=== PATIENT | female | born 1995 | race Caucasian/White ===

== ENCOUNTER → 2018-08-13 | Outpatient (CLI) | payer OTHER ==
[~2018-08-13] MED LIST: PROHANCE 279.3MG/ML 15ML VIAL (A9576) As Ordered ONE
--- NOTE | 2018-08-13 17:18 | REP ---
MR BRAIN WITHOUT AND WITH CONTRAST: HISTORY: Hyperprolactinemia. CONTRAST: ProHance 7 mL. There is no intracranial contrast enhancement secondary to injector malfunction. There are no areas of abnormal signal intensity in the brain. There is no intraparenchymal, hemorrhage, infarct or midline shift. The ventricular system is normal in appearance. There is no extracerebral collection. The pituitary gland is normal in size and signal intensity. The pituitary gland measures 7 mm in height. The infundibulum is midline. The cavernous sinuses, optic chiasm and hypothalamus are normal in appearance. Mucosal thickening is present in the left maxillary sinus. IMPRESSION:There is no intracranial lesion. There is no intraparenchymal contrast enhancement secondary to injector malfunction. It is recommended that the patient return for contrast enhanced images. Electronically Signed by Austin Roman MD 08/14/2018 09:04 A
== END ==
LOC: M RAD 13:12
PROVIDERS: ATTEND Obstetrics & Gynecology
DX: E22.1 Hyperprolactinemia (principal)
CPT/HCPCS: 70551; A9576

== ENCOUNTER → 2018-08-22 | Outpatient (CLI) | payer OTHER ==
[~2018-08-22] MED LIST changes: -PROHANCE 279.3MG/ML 15ML VIAL (A9576) As Ordered ONE; +PROHANCE 279.3MG/ML 5ML VIAL (A9576) As Ordered ONE
--- NOTE | 2018-08-22 10:44 | REP ---
MRI brain and pituitary with IV gadolinium: History: Hyperprolactinemia. Comparison is made with study done August 13, 2018. During the previous examination, and injector malfunction prevented optimum contrast injection. Technique: Axial, coronal and sagittal postcontrast images are obtained. In addition precontrast T1 and T2-weighted images are obtained. The contrast enhancement dose today is 7 mL of intravenous ProHance. MRI findings: Pituitary stalk is in the midline and enhances normally. Pituitary gland measures 7 mm in height. Its superior margin is convex. There is a subtle 3 mm area of delayed enhancement in the left side of the gland which may be a tiny microadenoma. The gland otherwise enhances homogeneously. Suprasellar cistern is unremarkable. Optic chiasm appears intact. There is no evidence to suggest macroadenoma or other parasellar lesion. This study is otherwise unremarkable. 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 Otherwise normal. Electronically Signed by James Ferreira MD 08/22/2018 11:23 A
== END ==
LOC: M RAD 07:52
PROVIDERS: ATTEND Obstetrics & Gynecology
DX: E22.1 Hyperprolactinemia (principal)
CPT/HCPCS: 70552; A9576

== ENCOUNTER 2020-08-30 12:07 | Emergency (ER) | payer OTHER ==
[~2020-08-30] VITALS: Ht 175.3 cm; Wt 87.6 kg
[2020-08-30] MEDS ORDERED: CABE0.5T PO (12:23)
[2020-08-30] MEDS ORDERED: IRON1TAB2 PO (12:23)
[2020-08-30] MEDS ORDERED: TRAZ-252 PO (12:23)
[2020-08-30] MEDS ORDERED: SERT-141 PO (12:23)
--- NOTE | 2020-08-30 13:13 | REP ---
INDICATION: acute onset headache-popping sensation right temporal area. COMPARISON: Comparison brain MRI study August 22, 2018.. TECHNIQUE: Helical scanning is acquired. 5 mm axial images were reformatted. Coronal MPR images were generated. FINDINGS: Bone window settings demonstrate an intact bony calvarium. There is no evidence of skull fracture or incidental bony calvarial lesion. The visualized paranasal sinuses appear clear. No intraorbital abnormality is seen. On soft tissue window setting images; the lateral, third, and fourth ventricles are normal in size and position. Nieto-white differentiation pattern is normal above and below the tentorium. There are is no evidence of intracranial hemorrhage. No mass, edema, infarction, or midline shift is seen. No extra-axial fluid collection is appreciated. IMPRESSION: Negative noncontrast head CT. <Electronically signed by Helio Ferreira > 08/30/20 [id number]
[2020-08-30] MEDS ORDERED: ACETAMINOPHEN 325 MG TAB PO ONE (13:35)
[2020-08-30] MEDS ORDERED: KETOROLAC 30 MG/ML 1ML VIAL IM ONE (13:35)
[2020-08-30] MEDS ORDERED: KETO10TAB PO (14:12)
[2020-08-30 14:25] VITALS: BP 150/94
== END 2020-08-30 14:27 | disposition home or self-care (01) ==
LOC: M ED 12:07
DX: G43.909 Migraine, unspecified, not intractable, without status migrainosus (principal)
CPT/HCPCS: 70450; 96372; 99283; J1885

== ENCOUNTER → 2021-01-07 | Outpatient (CLI) | payer OTHER ==
[~2021-01-07] MED LIST changes: +CABE0.5T PO; +IRON1TAB2 PO; +KETO10TAB PO; -PROHANCE 279.3MG/ML 5ML VIAL (A9576) As Ordered ONE; +SERT-141 PO; +TRAZ-252 PO
--- NOTE | 2021-01-08 21:27 | REPVR ---
PROCEDURE INFORMATION: Exam: MR Head Without and With Contrast Exam date and time: 01/07/2021 4:15 PM Age: 25 years old Clinical indication: Condition or disease; Other: Benign neoplasm of pituitary gland TECHNIQUE: Imaging protocol: MR of the head without and with intravenous contrast. Contrast material: PROHANCE; Contrast volume: 8 ml; Contrast route: INTRAVENOUS (IV); COMPARISON: CT Head without contrast 08/30/2020 12:54 PM FINDINGS: Brain: There is redemonstration of a very faint approximately 0.3 cm focus of decreased enhancement within the left aspect of the pituitary gland, unknown if this reflects normal anatomy versus very small micro-adenoma. The infundibulum is midline. The optic chiasm is normal. Cavernous sinuses are normal. No intracranial hemorrhage or extra-axial fluid collection. No evidence of mass effect or midline shift. No white matter abnormalities. No restricted diffusion to suggest acute infarct. Cerebral ventricles: Ventricles, cisterns, and sulci are normal. Bones/joints: Unremarkable. Paranasal sinuses: Left maxillary sinus retention cyst. Mastoid air cells: No mastoid effusion. Soft tissues: Unremarkable. IMPRESSION: Redemonstration of a very faint approximately 0.3 cm focus of decreased enhancement within the left aspect of the pituitary gland, unknown if this reflects normal anatomy versus very small micro-adenoma. Findings overall stable when compared with prior MRI brain from 08/22/2018. Continued interval follow-up at the discretion of neurosurgery/endocrinology. Electronically signed by: Kapil Velasco On 01/08/2021 21:27:30 PM
== END ==
LOC: M PLARAD 14:51
PROVIDERS: ATTEND Internal Medicine Endocrinology, Diabetes & Metabolism
DX: D35.2 Benign neoplasm of pituitary gland (principal)

== ENCOUNTER 2021-02-02 20:32 | Emergency (ER) | payer OTHER ==
[~2021-02-02] VITALS: Ht 177.8 cm; Wt 92.3 kg
[2021-02-02 21:39] LABS: APPEARANCE, URINE HAZY (CLEAR); BACTERIA, URINE AUTO NEGATIVE (NEGATIVE); BILIRUBIN, URINE AUTO NEGATIVE (NEGATIVE); BLOOD, URINE BLOOD 1+ (NEGATIVE); COLOR, URINE YELLOW (YELLOW); GLUCOSE, URINE (UA) AUTO NEGATIVE (NEGATIVE); KETONE, URINE AUTO NEGATIVE (NEGATIVE); LEUKOCYTE ESTERASE, URINE AUTO TRACE (NEGATIVE); MUCUS, URINE SMALL (NEGATIVE); NITRITE, URINE AUTO NEGATIVE (NEGATIVE); PROTEIN, URINE AUTO 1+ mg/dL (NEGATIVE); RBC, URINE AUTO 4 /HPF (0-3); SPECIFIC GRAVITY URINE AUTO 1.025 (1.002-1.035); SQUAMOUS EPITHELIAL CELL UR AU 4 /HPF (0-6); WBC, URINE AUTO 13 /HPF (0-3)
[2021-02-03 00:38] LABS: BASO # 0.1 10^3/uL (0.0-0.2); BASO % 0.5 % (0.0-1.0); EOS % 0.1 % (0.0-3.0); HEMATOCRIT 44.7 % (36.0-47.0); HEMOGLOBIN 14.9 g/dl (12.0-15.5); LYMPH # 1.6 10^3/uL (1.5-5.0); LYMPH % 11.8 % (24.0-44.0); MEAN CORPUSCULAR HEMOGLOBIN 30.8 pg (27.0-33.0); MEAN CORPUSCULAR HGB CONC 33.3 g/dl (32.0-36.5); MEAN CORPUSCULAR VOLUME 92.4 fl (80.0-96.0); MONO # 0.4 10^3/uL (0.0-0.8); MONO % 2.9 % (2.0-8.0); NEUTROPHILS # 11.6 10^3/uL (1.5-8.5); NEUTROPHILS % 84.1 % (36.0-66.0); PLATELET COUNT, AUTOMATED 292 10^3/uL (150-450); RED BLOOD COUNT 4.84 10^6/uL (4.00-5.40); WHITE BLOOD COUNT 13.9 10^3/uL (4.0-10.0)
[2021-02-03 01:10] LABS: ALBUMIN 4.2 GM/DL (3.2-5.2); ALT/SGPT 32 U/L (12-78); BILIRUBIN,DIRECT < 0.1 MG/DL (0.0-0.2); BILIRUBIN,TOTAL 0.5 MG/DL (0.2-1.0); BLOOD UREA NITROGEN 20 MG/DL (7-18); CALCIUM LEVEL 9.2 MG/DL (8.5-10.1); CARBON DIOXIDE LEVEL 30 MEQ/L (21-32); CHLORIDE LEVEL 106 MEQ/L (98-107); CREATININE FOR GFR 0.89 MG/DL (0.55-1.30); GLOMERULAR FILTRATION RATE > 60.0 (>60); GLUCOSE, FASTING 125 MG/DL (70-100); LIPASE 99 U/L (73-393); POTASSIUM SERUM 4.1 MEQ/L (3.5-5.1); SODIUM LEVEL 141 MEQ/L (136-145); TOTAL PROTEIN 7.6 GM/DL (6.4-8.2)
[2021-02-03] MEDS ORDERED: ONDANSETRON 4MG/2ML VIAL IV ONE (03:15)
[2021-02-03] MEDS ORDERED: KETOROLAC 30 MG/ML 1ML VIAL IV ONE (03:15)
--- NOTE | 2021-02-03 04:44 | REPVR ---
PROCEDURE INFORMATION: Exam: CT Abdomen And Pelvis Without Contrast Exam date and time: 02/03/2021 3:22 AM Age: 26 years old Clinical indication: Abdominal pain; Flank; Right; Additional info: Right flank pain, dysuria, hematuria TECHNIQUE: Imaging protocol: Computed tomography of the abdomen and pelvis without contrast. Radiation optimization: All CT scans at this facility use at least one of these dose optimization techniques: automated exposure control; mA and/or kV adjustment per patient size (includes targeted exams where dose is matched to clinical indication); or iterative reconstruction. COMPARISON: No relevant prior studies available. FINDINGS: Liver: Normal. No mass. Gallbladder and bile ducts: Normal. No calcified stones. No ductal dilation. Pancreas: Normal. No ductal dilation. Spleen: Normal. No splenomegaly. Adrenal glands: Normal. No mass. Kidneys and ureters: Mild right hydronephrosis. 2 mm stone in the distal right ureter. Mild right perinephric stranding. Left kidney is unremarkable. Stomach and bowel: Moderate stool in the colon. No abnormal bowel dilatation. No abnormal bowel wall thickening. Negative for colonic diverticulitis. Appendix: Appendix is normal. Intraperitoneal space: Unremarkable. No free air. No significant fluid collection. Vasculature: Unremarkable. No abdominal aortic aneurysm. Lymph nodes: Unremarkable. No enlarged lymph nodes. Urinary bladder: Bladder is decompressed. Reproductive: Uterus is normal. Bones/joints: Mild degenerative spine. No acute fracture. Soft tissues: Small umbilical hernia containing fat. There is no evidence of strangulation. IMPRESSION: Acute obstructive right uropathy with small distal ureteral stone. Electronically signed by: Sedrick Chand On 02/03/2021 04:44:01 AM
[2021-02-03] MEDS ORDERED: OXYCODONE/APAP 5MG/325MG(BULK FOR ED) 1 TABLET PO ONE (05:50)
[2021-02-03] MEDS ORDERED: CIPROFLOXACIN 500MG TABLET PO ONE (05:50)
[2021-02-03] MEDS ORDERED: TAMSULOSIN 0.4 MG CAP PO ONE (05:50)
[2021-02-03] MEDS ORDERED: CIPR-249 PO (05:52)
[2021-02-03] MEDS ORDERED: FLOM0.4C39 PO (05:52)
[2021-02-03 06:08] VITALS: BP 122/77
== END 2021-02-03 06:10 | disposition home or self-care (01) ==
LOC: M ED 20:32
DX: N20.1 Calculus of ureter (principal); D35.2 Benign neoplasm of pituitary gland; Z79.899 Other long term (current) drug therapy; Z90.89 Acquired absence of other organs; Z72.0 Tobacco use; Z83.79 Family history of other diseases of the digestive system